=== PATIENT | female | born 1985 | race Caucasian/White ===

== ENCOUNTER 2017-08-10 16:06 | Emergency (ER) | payer BC, OTHER ==
[2017-08-10 16:23] VITALS: BP 118/85
--- NOTE | 2017-08-10 16:37 | UC ---
Lower Extremity/Ankle HPI - HPI Summary HPI Summary: left ankle pain-twisted it about 7-10 days ago, is concerned because she has continued pain and swelling is wb ok-- - History of Current Complaint Chief Complaint: UCLowerExtremity Stated Complaint: LEFT ANKLE INJURY Time Seen by Provider: 08/10/17 16:36 Hx Obtained From: Patient Hx Last Menstrual Period: 11/20/15 ?: No Onset/Duration: Sudden Onset, Lasting Days - 7-10 days Pain Intensity: 5 Pain Scale Used: 0-10 Numeric Aggravating Factor(s): Standing, Ambulation Alleviating Factor(s): Rest, Elevation, Ice, OTC Meds Able to Bear Weight: Yes - Allergies/Home Medications Allergies/Adverse Reactions: Allergies Allergy/AdvReac Type Severity Reaction Status Date / Time No Known Allergies Allergy Verified 08/10/17 16:22 Home Medications: Home Medications buPROPion HCl [Bupropion HCl Sr] 300 mg PO DAILY 08/10/17 [History Confirmed ] PMH/Surg Hx/FS Hx/Imm Hx Previously Healthy: Yes Psychological History: Depression - Surgical History Surgical History: Yes Surgery Procedure, Year, and Place: wisdom teeth - Family History Known Family History: Positive: Diabetes Negative: Cardiac Disease, Hypertension - Social History Occupation: Works From/At Home Lives: With Family Alcohol Use: Weekly Alcohol Amount: Once a week Substance Use Type: None Smoking Status (MU): Never Smoked Tobacco - Immunization History Most Recent Influenza Vaccination: season Most Recent Tetanus Shot: Thinks is up to date. Review of Systems Constitutional: Negative Skin: Negative Eyes: Negative ENT: Negative Respiratory: Negative Cardiovascular: Negative Gastrointestinal: Negative Genitourinary: Negative Motor: Negative Neurovascular: Negative Musculoskeletal: Negative Neurological: Negative Psychological: Negative Is Patient Immunocompromised?: No All Other Systems Reviewed And Are Negative: Yes Physical Exam Triage Information Reviewed: Yes Appearance: Well-Appearing, Well-Nourished, Pain Distress - mild Vital Signs: Initial Vital Signs Temp 98.3 F 08/10/17 16:19 Pulse 109 08/10/17 16:19 Resp 18 08/10/17 16:19 BP 118/85 08/10/17 16:19 Pulse Ox 100 08/10/17 16:19 Vital Signs Reviewed: Yes Eye Exam: Normal Eyes: Positive: Conjunctiva Clear ENT Exam: Normal ENT: Positive: Normal ENT inspection, Hearing grossly normal. Negative: Muffled voice, Hoarse voice, Dental tenderness Dental Exam: Normal Neck exam: Normal Neck: Positive: Supple, Nontender Respiratory Exam: Normal Respiratory: Positive: Chest non-tender, No respiratory distress, No accessory muscle use Cardiovascular Exam: Normal Cardiovascular: Positive: RRR, Pulses Normal, Brisk Capillary Refill Musculoskeletal Exam: Normal Musculoskeletal: Positive: Strength Intact, ROM Intact, Edema @ - lateral left ankle Neurological Exam: Normal Neurological: Positive: Alert, Muscle Tone Normal Psychological Exam: Normal Skin Exam: Normal Diagnostics - Radiology No standard instances Xray Interpretation: Positive (See Comments) Radiology Interpretation Completed By: Radiologist - Patient Name: BINDU CABRAL Medical Record#: [id number] Ordering Physician: Allie Mcclure NP Acct.#: [id number] : 1985 Age: 32 Sex: F Location: [facility] Exam Date: 08/10/17 164 ADM Status: REG ER Order Information: ANKLE LEFT 3+ VWS Accession Number: [id number] CPT: 56355 Indication: LEFT ankle injury with pain and edema post fall from horse 1.5 weeks ago. Previous medial malleolus fracture. Comparison: December 04, 2005 Technique: AP, mortise, and lateral views LEFT ankle. Report: Soft tissue swelling most prominent over the lateral malleolus. Evidence for talocrural joint effusion. No acute fracture evident. Healed medial malleolus fracture. Mild talocrural joint osteophytosis without significant joint space narrowing. IMPRESSION: Lateral soft tissue swelling and talocrural joint effusion concerning for lateral supporting ligament injury. < Electronically signed by Colin Westfall MD in OV> 08/10/171704 Dictated By: Colin Westfall MD Dictated Date/Time: 08/10/171704 Transcribed Date/Time: 1702 Copy to: CC:Allie Mcclure NP; Eleni Ordaz MD; Jadiel Tovar MD Imaging - [facility] Imaging - [facility] Imaging - [facility] [address] [address] ph [phone]) ph ([phone]) ph ([phone]) 1 of Re-Evaluation - Re-Evaluation First Eval Change: Improved - katey and cam boot applied with increase comfort and steady gait Lower Extremity Course/Dx - Course Course Of Treatment: katey, cam, rice, ibuprofen, follow with orthopedic MD - Differential Dx/Diagnosis Provider Diagnoses: left ankle sprain Discharge - Sign-Out/Discharge Documenting (check all that apply): Discharge/Admit/Transfer - Discharge Plan Condition: Stable Disposition: HOME Prescriptions: Ibuprofen TAB* [Motrin TAB* 800 MG] 800 mg PO Q8H #30 tab Patient Education Materials: Ankle Sprain (ED), R.I.C.E. Treatment (ED) Referrals: Addison Mock MD [Medical Doctor] - 2 Days - Billing Disposition and Condition Condition: STABLE Disposition: HOME
--- NOTE | 2017-08-10 17:08 | RAD ---
Indication: LEFT ankle injury with pain and edema post fall from horse 1.5 weeks ago. Previous medial malleolus fracture. Comparison: December 04, 2005 Technique: AP, mortise, and lateral views LEFT ankle. Report: Soft tissue swelling most prominent over the lateral malleolus. Evidence for talocrural joint effusion. No acute fracture evident. Healed medial malleolus fracture. Mild talocrural joint osteophytosis without significant joint space narrowing. IMPRESSION: Lateral soft tissue swelling and talocrural joint effusion concerning for lateral supporting ligament injury.
== END 2017-08-10 17:34 | disposition home or self-care (01) ==
LOC: UCEAST 16:06
DX: S93.402A Sprain of unspecified ligament of left ankle, initial encounter (principal); X50.1XXA Overexertion from prolonged static or awkward postures, initial encounter; Y93.9 Activity, unspecified; Y92.9 Unspecified place or not applicable; F32.9 Major depressive disorder, single episode, unspecified
CPT/HCPCS: 99213; G0463

== ENCOUNTER 2018-02-22 17:36 | Emergency (ER) | payer BC ==
[2018-02-22 18:49] VITALS: BP 124/85
--- NOTE | 2018-02-22 20:11 | UC ---
Lower Extremity/Ankle HPI - HPI Summary HPI Summary: RAMÍREZ LUEVANOET WAS DROPPED ON HER RIGHT FOOT YESTERDAY. PATIENT HAS BRUISING AND SWELLING TO THE DISTAL PART OF HER RIGHT FOOT. PAIN WITH AMBULATION. - History of Current Complaint Chief Complaint: UCLowerExtremity Stated Complaint: FOOT INJURY Time Seen by Provider: 02/22/18 17:53 Hx Obtained From: Patient Hx Last Menstrual Period: [id number] Onset/Duration: Sudden Onset, Lasting Days - 1 DAY, Still Present Severity Initially: Moderate Severity Currently: Moderate Pain Intensity: 5 Pain Scale Used: 0-10 Numeric Aggravating Factor(s): Standing, Ambulation Alleviating Factor(s): Rest, Elevation Able to Bear Weight: Yes - Allergies/Home Medications Allergies/Adverse Reactions: Allergies Allergy/AdvReac Type Severity Reaction Status Date / Time No Known Allergies Allergy Verified 02/22/18 18:49 PMH/Surg Hx/FS Hx/Imm Hx Respiratory History: Asthma Psychological History: Anxiety, Depression - Surgical History Surgical History: Yes Surgery Procedure, Year, and Place: wisdom teeth - Family History Known Family History: Positive: Diabetes Negative: Cardiac Disease, Hypertension - Social History Alcohol Use: Weekly Alcohol Amount: Once a week Substance Use Type: None Smoking Status (MU): Never Smoked Tobacco - Immunization History Most Recent Influenza Vaccination: season Most Recent Tetanus Shot: Thinks is up to date. Review of Systems All Other Systems Reviewed And Are Negative: Yes Constitutional: Positive: Negative Skin: Positive: Bruising Respiratory: Positive: Negative Cardiovascular: Positive: Negative Gastrointestinal: Positive: Negative Musculoskeletal: Positive: Arthralgia, Decreased ROM, Edema Physical Exam Triage Information Reviewed: Yes Appearance: Well-Appearing, No Pain Distress, Well-Nourished Vital Signs: Initial Vital Signs Temp 97.5 F 02/22/18 18:44 Pulse 87 02/22/18 18:44 Resp 16 02/22/18 18:44 BP 124/85 02/22/18 18:44 Pulse Ox 100 02/22/18 18:44 Vital Signs Reviewed: Yes Eyes: Positive: Conjunctiva Clear ENT: Positive: Hearing grossly normal Neck: Positive: Supple Respiratory: Positive: No respiratory distress, No accessory muscle use Cardiovascular: Positive: Pulses Normal Abdomen Description: Positive: Soft Musculoskeletal: Positive: ROM Limited @ - RIGHT FOOT, Edema @ - RIGHT DISTAL FOOT, Other: - TTP BASE OF RIGHT GREAT TOE Neurological: Positive: Alert Psychological: Positive: Age Appropriate Behavior Skin: Positive: Other - BRUISING AND SWELLING RIGHT DISTAL FOOT Diagnostics - Radiology RIGHT FOOT XRAY Radiology Interpretation Completed By: ED Physician Summary of Radiographic Findings: FRACTURE BASE OF PROXIMAL PHALANX RIGHT GREAT TOE Lower Extremity Course/Dx - Differential Dx/Diagnosis Provider Diagnosis: Fracture of right great toe Discharge - Sign-Out/Discharge Documenting (check all that apply): Patient Departure All imaging exams completed and their final reports reviewed: No - Discharge Plan Condition: Stable Disposition: HOME Patient Education Materials: Toe Fracture (ED) Referrals: Isaac García MD [Medical Doctor] - 2 Weeks Eleni Ordaz MD [Primary Care Provider] - If Needed Additional Instructions: X-RAY TODAY SHOWS A SMALL FRACTURE AT THE BASE OF THE RIGHT GREAT TOE ON MY INITIAL INTERPRETATION. WE WILL CALL YOU IF THE RADIOLOGY READ DIFFERS. WEAR THE POSTOP SHOE FOR COMFORT. REST, ICE, COMPRESS, ELEVATE. IBUPROFEN NEEDED FOR DISCOMFORT. FOLLOW-UP WITH ORTHO IN THE NEXT COUPLE OF WEEKS. - Billing Disposition and Condition Condition: STABLE Disposition: Home
--- NOTE | 2018-02-23 08:42 | UC ---
- Progress Note Progress Note: Radiologist reading of right foot x-ray from s 2017 indicates a fracture at the base of the great toe. The clinician on yesterday seeing the patient had the same reading therefore there is no discrepancy. Course/Dx - Diagnoses Provider Diagnoses: Fracture of right great toe Discharge - Sign-Out/Discharge Documenting (check all that apply): Patient Departure All imaging exams completed and their final reports reviewed: Yes - Discharge Plan Condition: Stable Disposition: HOME Patient Education Materials: Toe Fracture (ED) Referrals: Isaac García MD [Medical Doctor] - 2 Weeks Eleni Ordaz MD [Primary Care Provider] - If Needed Additional Instructions: X-RAY TODAY SHOWS A SMALL FRACTURE AT THE BASE OF THE RIGHT GREAT TOE ON MY INITIAL INTERPRETATION. WE WILL CALL YOU IF THE RADIOLOGY READ DIFFERS. WEAR THE POSTOP SHOE FOR COMFORT. REST, ICE, COMPRESS, ELEVATE. IBUPROFEN NEEDED FOR DISCOMFORT. FOLLOW-UP WITH ORTHO IN THE NEXT COUPLE OF WEEKS. - Billing Disposition and Condition Condition: STABLE Disposition: Home
== END 2018-02-22 20:10 | disposition home or self-care (01) ==
LOC: UCEAST 17:36
DX: S92.424A Nondisplaced fracture of distal phalanx of right great toe, initial encounter for closed fracture (principal); W31.89XA Contact with other specified machinery, initial encounter; Y92.9 Unspecified place or not applicable
CPT/HCPCS: 99212; G0463